=== PATIENT | female | born 1945 | race Two or more races ===

== ENCOUNTER 2019-05-10 23:01 | Inpatient (IN) | payer MEDICARE, MEDICAID ==
[~2019-05-10] VITALS: Ht 157.5 cm; Wt 68.0 kg
--- NOTE | 2019-05-10 23:28 | NUR ---
PT BIBFAMILY C/O WEAKNESS X2 DAYS. LOW BP READING AT HOME (86/60), HEADACHE, PT IS AAOX3, NOT IN RESPIRATORY DISTRESS, HOOKED TO MONITOR, KEPT RESTED AND COMFORTABLE, WILL CONTINUE TO MONITOR.
--- NOTE | 2019-05-10 23:46 | NUR ---
AT BEDSIDE FOR EVAL.
[2019-05-11] VITALS (7 sets, daily range): BP systolic 112–127; BP diastolic 66–75
[2019-05-11] MEDS ORDERED: IV NS 0.9% 1,000 ML BAG IV ONE
--- NOTE | 2019-05-11 00:01 | NUR ---
IV LINE ESTABLISHED, BLOOD DRAWN AND SENT TO LAB.
--- NOTE | 2019-05-11 00:02 | NUR ---
URINAL GIVEN, BUT UNABLE TO PROVIDE URINE SPECIMEN THIS TIME.
[2019-05-11 00:38] LABS: CALCIUM, SERUM 7.9 mg/dL (8.5-10.1); CARBON DIOXIDE 27 mmol/L (21-32); CHLORIDE 96 mmol/L (98-107); CREATININE 0.7 mg/dL (0.6-1.3); GLUCOSE 127 mg/dL (74-106); POTASSIUM 3.5 mmol/L (3.5-5.1); SODIUM SERUM 130 mmol/L (136-145); UREA NITROGEN, BLOOD 15 mg/dL (7-18)
[2019-05-11 00:39] LABS: BASOPHILS % (AUTO) 0.8 % (0.0-2.0); EOSINOPHILS % (AUTO) 3.4 % (0.0-6.0); HEMATOCRIT 36 % (33-45); HEMOGLOBIN 11.9 g/dL (11.5-14.8); LYMPHOCYTES # (AUTO) 1.5 /CMM (0.8-4.8); LYMPHOCYTES % (AUTO) 31.9 % (20.0-44.0); MEAN CORPUSCULAR HGB CONC 34 g/dl (31.0-36.0); MEAN CORPUSCULAR VOLUME 97 fL (82-100); MONOCYTES # (AUTO) 0.5 /CMM (0.1-1.30); MONOCYTES % (AUTO) 9.9 % (2.0-12.0); NEUTROPHILS # (AUTO) 2.5 /CMM (1.8-8.9); PLATELET COUNT (AUTO) 203 /CMM (150-450); RED BLOOD CELL COUNT(AUTO) 3.67 MIL/uL (4.0-5.2); WHITE BLOOD COUNT (AUTO) 4.6 K/uL (4.3-11.0)
--- NOTE | 2019-05-11 00:40 | NUR ---
URINE COLLECTED VIA STRAIGHT CATH AND SENT TO LAB
[2019-05-11 00:50] LABS: ALANINE AMINOTRANSFERASE 71 U/L (12-78); ALBUMIN 2.9 g/dL (3.4-5.0); ALKALINE PHOSPHATASE 58 U/L (46-116); ASPARTATE AMINOTRANSFERASE 65 U/L (15-37); BILIRUBIN,DIRECT 0.1 mg/dL (0.0-0.2); BILIRUBIN,TOTAL 0.4 mg/dL (0.2-1.0); MAGNESIUM 1.5 mg/dL (1.8-2.4); PHOSPHORUS 3.4 mg/dL (2.5-4.9); TOTAL PROTEIN, SERUM 6.6 g/dL (6.4-8.2)
[2019-05-11 00:57] LABS: APPEARANCE,URINE Clear (CLEAR); BILIRUBIN,URINE Negative (NEGATIVE); BLOOD, URINE Trace-intact Ery/uL (NEGATIVE); COLOR,URINE Yellow (YELLOW); KETONES,URINE Negative (NEGATIVE); LEUKOCYTE ESTERASE ,URINE Negative (NEGATIVE); NITRITE, URINE Negative (NEGATIVE); PH,URINE 7.5 (5.0-8.0); PROTEIN,URINE Negative (NEGATIVE); UGLUCOSE Negative (NEGATIVE); UROBILINOGEN,URINE 0.2 EU/dL (0.2)
--- NOTE | 2019-05-11 01:09 | NUR ---
DAUGHTER'S NUMBER (CHANTAL) [phone]
[2019-05-11 01:15] LABS: BACTERIA,URINE None seen /HPF (None Seen); SQUAMOUS EPITHELIAL CELL,UR Few /HPF (None Seen); WBC,URINE 0-2 /HPF (0-3)
[2019-05-11] MEDS ORDERED: ASPIRIN EC 325 MG TABLET.DR PO ONE (01:30)
[2019-05-11] MEDS ORDERED: ASPIRIN 325 MG TABLET ONE (01:36)
[2019-05-11] MEDS ORDERED: LORA-259 PO (01:43)
[2019-05-11] MEDS ORDERED: NITR100C6 PO (01:43)
[2019-05-11] MEDS ORDERED: CARV12.5 PO (01:43)
[2019-05-11] MEDS ORDERED: HYDR-4076 PO (01:43)
[2019-05-11] MEDS ORDERED: ATOR20TA PO (01:43)
[2019-05-11] MEDS ORDERED: DOCU100C36 PO (01:43)
--- NOTE | 2019-05-11 01:45 | NUR ---
ROOM: [facility]
[2019-05-11] MEDS ORDERED: TEMAZEPAM 7.5 MG CAPSULE PO PRN (02:00)
[2019-05-11] MEDS ORDERED: NITROGLYCERIN 0.4 MG/TAB BOTTLE SL PRN (02:00)
[2019-05-11] MEDS ORDERED: ACETAMINOPHEN 325 MG TABLET PO PRN (02:00)
[2019-05-11] MEDS ORDERED: Magnesium 1GM/D5W 100ML PREMIX PIGGYBACK IV ONE (02:00)
[2019-05-11] MEDS ORDERED: ONDANSETRON HCL/PF 4 MG/2 ML VIAL IVP PRN (02:00)
[2019-05-11] MEDS ORDERED: MAGNESIUM HYDROXIDE 30 ML UDC PO PRN (02:00)
[2019-05-11] MEDS ORDERED: MAG HYDROX/AL HYDROX/SIMETH 30 ML UDC PO PRN (02:00)
[2019-05-11] MEDS ORDERED: MORPHINE SULFATE INJ 2 MG/ML DISP.SYRIN IV PRN (02:00)
[2019-05-11] MEDS ORDERED: HYDROCODONE/APAP 5/325MG 1 EACH TABLET PO PRN (02:00)
--- NOTE | 2019-05-11 02:11 | NUR ---
REPORT GIVEN TO CHAD CHARLES FOR YAMILETH.
--- NOTE | 2019-05-11 03:00 | NUR ---
SENIOR ENVIRONMENTAL TECHNICIANFORENSIC PHOTOGRAPHER NOTES RECEIVED FROM ER PER AJIT,A/O X3,SPEAK TAMAZIGHT,WITH LITTLE HONDURAN.CHIEF COMPLAINTS OF WEAKNESS X 2DAYS.WITH LOOSE BOWEL MOVEMENT,TAKING COLACE BID.WITH SALINE LOCK LEFT AC #18 ,AMBULATORY.NO SKIN ISSUES.DENIES CHEST PAIN,CALL LIJY IN REACH ,NEEDS ANTICIPATED.
--- NOTE | 2019-05-11 03:37 | NUR ---
FREIGHT INSPECTOR NOTES STARTED ON MAGNESIUM 1GM IVPB ORDERED
--- NOTE | 2019-05-11 06:12 | NUR ---
CLAIM CLERK NOTES SR ON TELE MONITOR.DENIES CHEST PAIN.CALL LIGHT IN REACH,NEEDS ATTENDED.WILL ENDORSE TO DAY NURSE FOR YAMILETH.
--- NOTE | 2019-05-11 06:13 | NUR ---
PROCESS CHEESE COOKER NOTES HOME MEDICATIONS SENT TO PHARMACY.
--- NOTE | 2019-05-11 07:30 | NUR ---
PT RECEIVED RESTING COMFORTABLY IN BED. NO C/O OR S/S OF PAIN OR DISTRESS NOTED. SIDE RAILS UP X2, CALL LIGHT LEFT WITHIN REACH. WILL CONTINUE PLAN OF CARE
[2019-05-11] MEDS ORDERED: DOCUSATE SODIUM 100 MG CAPSULE PO PRN (08:30)
[2019-05-11] MEDS: CARVEDILOL 12.5 MG TABLET PO SCH ×2 (08:53→17:00)
[2019-05-11] MEDS ORDERED: ASPIRIN 81 MG TAB.CHEW PO SCH (09:00)
[2019-05-11 09:37] LABS: OSMOLALITY,URINE 196 mOS/kg (340-1090)
[2019-05-11 09:48] LABS: URINE SODIUM, RANDOM 40 mmol/l (40-220)
[2019-05-11] MEDS: APIXABAN 5 MG TABLET PO SCH ×2 (12:11→17:42)
--- NOTE | 2019-05-11 19:01 | NUR ---
ENTRY MANAGER NOTE RECEIVED PT IN STABLE CONDITION A/O X 3, CURRENTLY SPEAKING WITH FAMILY MEMBERS. NO SIGNS OF SOB OR DISTRESS, NO C/O PAIN OR N/V. IV IN L AC #[address] S/L. TELE MONITOR: CONTROLLED A. FIB 63. ALL CURRENT NEEDS ATTENDED TO. BED LOW, LOCKED, UPPER RAILS UP AND CALL LIGHT WITHIN REACH. WILL CONT. TO MONITOR.
--- NOTE | 2019-05-11 19:28 | NUR ---
CHANGE OF SHIFT REPORT PT RESTING COMFORTABLY IN BED. NO S/S OR C/O PAIN OR DISTRESS NOTED. SIDE RAILS UP X2, CALL LIGHT LEFT WITHIN REACH. NO SIGNIFICANT CHANGES SINCE PREVIOUS SHIFT. PT KEPT CLEAN, DRY, AND COMFORTABLE. REPORT GIVEN TO BRIDGER BONILLA
[2019-05-11] MEDS ORDERED: ATORVASTATIN 10 MG TABLET PO SCH (22:00)
[2019-05-12 04:00] VITALS: BP 131/74
--- NOTE | 2019-05-12 06:15 | NUR ---
SPECIAL INVESTIGATION UNIT INVESTIGATOR NOTE PT REMAINS IN STABLE CONDITION A/O X 3, CURRENTLY RESTING IN BED. NO SIGNS OF SOB OR DISTRESS, NO C/O PAIN OR N/V. IV IN L AC #[address] S/L. TELE MONITOR: CONTROLLED A. FIB 62. ALL CURRENT NEEDS ATTENDED TO. BED LOW, LOCKED, UPPER RAILS UP AND CALL LIGHT WITHIN REACH. WILL CONT. TO MONITOR AND ENDORSE TO NEXT SHIFT FOR YAMILETH.
[2019-05-12 06:30] LABS: BASOPHILS # (AUTO) 0.1 /CMM (0.0-0.2); BASOPHILS % (AUTO) 1.4 % (0.0-2.0); EOSINOPHILS % (AUTO) 4.4 % (0.0-6.0); HEMATOCRIT 35 % (33-45); LYMPHOCYTES # (AUTO) 1.8 /CMM (0.8-4.8); LYMPHOCYTES % (AUTO) 39.2 % (20.0-44.0); MEAN CORPUSCULAR HGB CONC 34 g/dl (31.0-36.0); MEAN CORPUSCULAR VOLUME 96 fL (82-100); MONOCYTES # (AUTO) 0.4 /CMM (0.1-1.30); MONOCYTES % (AUTO) 8.7 % (2.0-12.0); NEUTROPHILS # (AUTO) 2.2 /CMM (1.8-8.9); NEUTROPHILS % (AUTO) 46.3 % (43.0-81.0); PLATELET COUNT (AUTO) 197 /CMM (150-450); RED BLOOD CELL COUNT(AUTO) 3.64 MIL/uL (4.0-5.2); WHITE BLOOD COUNT (AUTO) 4.7 K/uL (4.3-11.0)
[2019-05-12 06:55] LABS: CALCIUM, SERUM 7.9 mg/dL (8.5-10.1); CREATININE 0.7 mg/dL (0.6-1.3); MAGNESIUM 1.6 mg/dL (1.8-2.4); PHOSPHORUS 3.9 mg/dL (2.5-4.9); POTASSIUM 3.8 mmol/L (3.5-5.1)
--- NOTE | 2019-05-12 07:30 | NUR ---
RECEIVED PT. IN AM NO COMPLANTS OFFERED.UP TO BATHRM. WITH USE OF WALKER.
[2019-05-12 08:00] VITALS: BP 147/69
[2019-05-12] MEDS ORDERED: MOXIFLOXACIN OPTH 3 ML BOTTLE RIGHTEYE SCH (09:00)
[2019-05-12] MEDS: Magnesium 1GM/D5W 100ML PREMIX 100 ML IV SCH ×2 (09:48→10:53)
[2019-05-12] MEDS: MOXIFLOXACIN OPTH 3 ML BOTTLE RIGHTEYE SCH ×3 (09:48→17:14)
[2019-05-12] MEDS: CARVEDILOL 12.5 MG TABLET PO SCH ×2 (09:49→17:15)
[2019-05-12] MEDS: APIXABAN 5 MG TABLET PO SCH ×2 (09:51→17:14)
[2019-05-12 16:00] VITALS: BP 136/70
[2019-05-12 17:15] VITALS: BP 136/70
--- NOTE | 2019-05-12 17:30 | NUR ---
DR. GREY IN LATE WITH PLANS FOR DC.
--- NOTE | 2019-05-12 18:00 | NUR ---
REPORT CALLED TO YOGI AT FACILITY.
--- NOTE | 2019-05-12 19:00 | NUR ---
IV MG REPLACEMENT TODAY.GAVE REPORT TO DRIVERS. ALL PAPERS SIGNED.TAKEN TO FACILITY VIA AMB.ADDITIONALLY MEDS RECEIVED FROM PHARMACY AND GIVEN TO DTR.
[2019-05-13] MEDS ORDERED: prednisoLONE ACETATE 1% SUSP 5 ML BOTTLE RIGHTEYE SCH (09:00)
== END 2019-05-12 19:37 | DRG 640 ==
LOC: ER 23:08 → TELE 05-11 02:37 → MED 05-12 08:31
PROVIDERS: ADMIT Nurse Practitioner Acute Care; ATTEND Internal Medicine
DX: E87.1 Hypo-osmolality and hyponatremia (principal); I21.A1 Myocardial infarction type 2; I50.22 Chronic systolic (congestive) heart failure; D68.59 Other primary thrombophilia; I48.20 Chronic atrial fibrillation, unspecified; N39.0 Urinary tract infection, site not specified; I11.0 Hypertensive heart disease with heart failure; E78.5 Hyperlipidemia, unspecified; M06.9 Rheumatoid arthritis, unspecified; Z86.73 Personal history of transient ischemic attack (TIA), and cerebral infarction without residual deficits; I25.10 Atherosclerotic heart disease of native coronary artery without angina pectoris; I25.2 Old myocardial infarction; I25.5 Ischemic cardiomyopathy; Z88.0 Allergy status to penicillin; E86.1 Hypovolemia; I95.9 Hypotension, unspecified; E83.42 Hypomagnesemia
CPT/HCPCS: 36415; 71045-TC; 80048-TC; 80061-TC; 80076-TC; 81000-TC; 83605-TC; 83735-TC; 83880; 83935-TC; 84100-TC; 84300-TC; 84484-TC; 85025-TC; 85730-TC; 87040-TC; 87081-TC; 87086-TC; 97116-TC; 97530-TC; G0378; J3475; J7030

== ENCOUNTER 2019-06-09 12:58 | Emergency (ER) | payer MEDICARE, MEDICAID ==
[~2019-06-09] VITALS: Ht 157.5 cm; Wt 70.3 kg
[~2019-06-09 12:58] MED LIST: ATOR20TA PO; CARV12.5 PO; DOCU100C36 PO; HYDR-4076 PO; LORA-259 PO; NITR100C6 PO
--- NOTE | 2019-06-09 13:12 | NUR ---
KRISTY WHITTAKER [facility] FOR BUE RASH X 3 WEEKS. PATIENT CHANGED INTO GOWN, ATTACHED TO THE B OPERATOR. NO DISTRESS NOTED.
--- NOTE | 2019-06-09 13:45 | NUR ---
URINE SENT TO LAB.
[2019-06-09 13:48] LABS: BASOPHILS # (AUTO) 0.1 /CMM (0.0-0.2); BASOPHILS % (AUTO) 1.4 % (0.0-2.0); EOSINOPHILS % (AUTO) 5.9 % (0.0-6.0); HEMATOCRIT 37 % (33-45); HEMOGLOBIN 12.2 g/dL (11.5-14.8); LYMPHOCYTES # (AUTO) 1.4 /CMM (0.8-4.8); LYMPHOCYTES % (AUTO) 24.9 % (20.0-44.0); MEAN CORPUSCULAR HGB CONC 33 g/dl (31.0-36.0); MEAN CORPUSCULAR VOLUME 96 fL (82-100); MONOCYTES # (AUTO) 0.6 /CMM (0.1-1.30); MONOCYTES % (AUTO) 11.1 % (2.0-12.0); NEUTROPHILS # (AUTO) 3.3 /CMM (1.8-8.9); NEUTROPHILS % (AUTO) 56.7 % (43.0-81.0); PLATELET COUNT (AUTO) 250 /CMM (150-450); RED BLOOD CELL COUNT(AUTO) 3.83 MIL/uL (4.0-5.2); WHITE BLOOD COUNT (AUTO) 5.8 K/uL (4.3-11.0)
[2019-06-09 13:53] LABS: CALCIUM, SERUM 8.4 mg/dL (8.5-10.1); CREATININE 0.7 mg/dL (0.6-1.3); POTASSIUM 3.2 mmol/L (3.5-5.1)
[2019-06-09 13:59] LABS: BILIRUBIN,URINE Negative (NEGATIVE); BLOOD, URINE Trace-intact Ery/uL (NEGATIVE); COLOR,URINE Yellow (YELLOW); KETONES,URINE Negative (NEGATIVE); LEUKOCYTE ESTERASE ,URINE Small (NEGATIVE); NITRITE, URINE Negative (NEGATIVE); PROTEIN,URINE Negative (NEGATIVE); UGLUCOSE Negative (NEGATIVE); UROBILINOGEN,URINE 0.2 EU/dL (0.2)
[2019-06-09 14:01] LABS: APPEARANCE,URINE SLIGHTLY HAZY (CLEAR)
[2019-06-09 14:05] LABS: BACTERIA,URINE Few /HPF (None Seen); SQUAMOUS EPITHELIAL CELL,UR Moderate /HPF (None Seen)
--- NOTE | 2019-06-09 14:29 | NUR ---
ARRANGED BLS TRANSPORT WITH [facility], TRIP NUMBER: [id number]
--- NOTE | 2019-06-09 15:13 | NUR ---
Patient is resting comfortably in bed with eyes closed. Easily aroused. VSS
--- NOTE | 2019-06-09 15:47 | NUR ---
CALLED TRANSPORT REGARDING TRIP # [id number] TO CANCEL CALL
[2019-06-09 15:48] VITALS: BP 146/84
--- NOTE | 2019-06-09 15:48 | NUR ---
Patient discharged to home in stable condition. Written and verbal after care instructions given to son. Patient and son verbalizes understanding of instruction.
== END 2019-06-09 15:49 | disposition home or self-care (01) ==
LOC: ER 13:00
DX: L25.9 Unspecified contact dermatitis, unspecified cause (principal); I10 Essential (primary) hypertension; I48.91 Unspecified atrial fibrillation; E78.5 Hyperlipidemia, unspecified; F41.9 Anxiety disorder, unspecified; M06.9 Rheumatoid arthritis, unspecified; Z98.890 Other specified postprocedural states; Z88.0 Allergy status to penicillin; Z79.899 Other long term (current) drug therapy
CPT/HCPCS: 36415; 80048-TC; 81000-TC; 85025-TC